=== PATIENT | female | born 1950 | race Caucasian/White ===

== ENCOUNTER 2016-12-04 | Observation (INO) | payer MEDICARE, BC, OTHER ==
[2016-12-03 23:31] VITALS: BP 132/69; PULSE 83; TEMP 98.3
[2016-12-04] VITALS (9 sets, daily range): BP systolic 102–125; BP diastolic 40–59; PULSE 73–90; TEMP 98.3–99.4
[~2016-12-04] VITALS: Ht 162.6 cm; Wt 71.3 kg
[2016-12-04 06:23] LABS: BASO % 0.1 % (0.0-2.0); GRAN # 11.4 (1.4-6.5); GRAN % 80.6 % (42.2-75.2); HEMATOCRIT 37.8 % (37.0-47.0); HEMOGLOBIN 12.7 g/dl (12.5-16.0); LYMPH # 1.4 (1.2-3.4); LYMPH % 9.8 % (20.0-51.0); MEAN CELL VOLUME 89 fl (80.0-100.0); MEAN CORPUSCULAR HEMOGLOBIN 30 pg (27.0-31.0); MEAN CORPUSCULAR HGB CONC 34 g/dl (33.0-37.0); MEAN PLATELET VOLUME 10.5 fl (7.4-10.4); MONO # 1.3 (0.1-0.6); MONO % 9.1 % (1.7-9.3); PLATELET COUNT 152 K/mm3 (130-400); RED BLOOD COUNT 4.25 M/mm3 (4.10-5.30); REDCELL DISTRIBUTION WIDTH-CV 13.7 % (11.5-14.5); WHITE BLOOD COUNT 14.1 K/mm3 (4.8-10.8)
== END 2016-12-04 19:11 | disposition home or self-care (01) ==
LOC: SDCO → SURG → SDCO 11:04 → SURG 11:05
PROVIDERS: Surgery
DX: C18.1 Malignant neoplasm of appendix (principal); K35.3 Acute appendicitis with localized peritonitis; Z96.643 Presence of artificial hip joint, bilateral
CPT/HCPCS: OP; G0378; G0379; J2543; J2704; J2765; J3010; J7030; J7050; J7120

== ENCOUNTER 2017-02-22 12:01 | Outpatient (CLI) | payer MEDICARE, BC, OTHER ==
[~2017-02-22] VITALS: Ht 162.6 cm; Wt 59.1 kg
[2017-02-22 12:28] LABS: HEMOGLOBIN 13.6 g/dl (12.5-16.0); MEAN CELL VOLUME 84 fl (80.0-100.0); MEAN CORPUSCULAR HEMOGLOBIN 30 pg (27.0-31.0); MEAN CORPUSCULAR HGB CONC 36 g/dl (33.0-37.0); MEAN PLATELET VOLUME 8.7 fl (7.4-10.4); PLATELET COUNT 250 K/mm3 (130-400); RED BLOOD COUNT 4.51 M/mm3 (4.10-5.30); REDCELL DISTRIBUTION WIDTH-CV 13.4 % (11.5-14.5); WHITE BLOOD COUNT 10.4 K/mm3 (4.8-10.8)
[2017-02-22 12:36] LABS: CALCIUM 9.7 mg/dL (8.4-10.2); CREATININE, serum 1.02 mg/dL (0.52-1.25); POTASSIUM 4.4 mmol/L (3.4-5.0)
[2017-02-22 13:36] VITALS: BP 110/61; PULSE 94
== END 2017-02-22 15:30 | disposition home or self-care (01) ==
LOC: EUO 12:01
PROVIDERS: Internal Medicine Gastroenterology
DX: K63.89 Other specified diseases of intestine (principal); E86.0 Dehydration; Z90.49 Acquired absence of other specified parts of digestive tract
CPT/HCPCS: J7120

== ENCOUNTER 2017-02-22 14:51 | Inpatient (IN) | payer MEDICARE, BC, OTHER ==
[~2017-02-22] VITALS: Ht 162.6 cm; Wt 59.9 kg
[2017-03-02] VITALS (11 sets, daily range): BP systolic 97–131; BP diastolic 46–72; PULSE 70–98; TEMP 97.2–98.1
[2017-03-02 11:08] LABS: BASO # 0.1 (0.0-0.2); BASO % 0.6 % (0.0-2.0); EOS # 0.2 (0.0-0.7); EOS % 2.5 % (0-4.0); GRAN # 5.9 (1.4-6.5); GRAN % 67.4 % (42.2-75.2); HEMATOCRIT 37.6 % (37.0-47.0); LYMPH # 1.8 (1.2-3.4); LYMPH % 20.6 % (20.0-51.0); MEAN CELL VOLUME 87 fl (80.0-100.0); MEAN CORPUSCULAR HEMOGLOBIN 30 pg (27.0-31.0); MEAN CORPUSCULAR HGB CONC 35 g/dl (33.0-37.0); MEAN PLATELET VOLUME 8.8 fl (7.4-10.4); MONO # 0.7 (0.1-0.6); MONO % 8.3 % (1.7-9.3); PLATELET COUNT 314 K/mm3 (130-400); RED BLOOD COUNT 4.32 M/mm3 (4.10-5.30); REDCELL DISTRIBUTION WIDTH-CV 13.7 % (11.5-14.5); WHITE BLOOD COUNT 8.7 K/mm3 (4.8-10.8)
[2017-03-02 11:18] LABS: CREATININE, serum 0.92 mg/dL (0.52-1.25)
[2017-03-03 01:34] VITALS: BP 99/47; PULSE 88; TEMP 97.9
[2017-03-03 06:01] VITALS: BP 98/48; PULSE 77; TEMP 98.4
[2017-03-03 06:19] LABS: HEMATOCRIT 29.5 % (37.0-47.0); HEMOGLOBIN 10.2 g/dl (12.5-16.0)
[2017-03-03 06:28] LABS: CREATININE, serum 0.74 mg/dL (0.52-1.25); MAGNESIUM 1.2 mg/dL (1.6-2.3); POTASSIUM 4.2 mmol/L (3.4-5.0)
[2017-03-03 09:40] VITALS: BP 95/60; PULSE 90; TEMP 98.4
[2017-03-03 12:56] LABS: HEMATOCRIT 30.2 % (37.0-47.0); HEMOGLOBIN 10.6 g/dl (12.5-16.0)
[2017-03-03 13:36] VITALS: BP 103/45; PULSE 92; TEMP 98.2
[2017-03-03 17:49] VITALS: BP 106/47; PULSE 92; TEMP 97.9
[2017-03-03 22:11] VITALS: BP 114/29; PULSE 97; TEMP 98.2
[2017-03-04 05:37] VITALS: BP 98/48; PULSE 89; TEMP 98.4
[2017-03-04] MEDS ORDERED: MOTRIN 200200 MG/TAB PO (09:34)
[2017-03-04 09:36] VITALS: BP 102/54; PULSE 86; TEMP 97.9
== END 2017-03-04 10:08 | disposition home or self-care (01) | DRG 330 ==
LOC: SURG 03-02 09:42 → INPTSU 03-02 09:42 → SURG 03-02 12:30
PROVIDERS: Surgery
PROC: 02HV33Z Insertion of Infusion Device into Superior Vena Cava, Percutaneous Approach (ICD-10-PCS; 2017-03-02)
PROC: B5181ZA Fluoroscopy of Superior Vena Cava using Low Osmolar Contrast, Guidance (ICD-10-PCS; 2017-03-02)
PROC: 0DBB0ZZ Excision of Ileum, Open Approach (ICD-10-PCS; principal; 2017-03-02 12:30)
PROC: 0JH60XZ Insertion of Tunneled Vascular Access Device into Chest Subcutaneous Tissue and Fascia, Open Approach (ICD-10-PCS; 2017-03-02 12:30)
DX: Z43.2 Encounter for attention to ileostomy (principal); C18.1 Malignant neoplasm of appendix; D50.0 Iron deficiency anemia secondary to blood loss (chronic)
CPT/HCPCS: A9284; C1788; J0694; J1100; J1170; J1644; J1650; J2405; J2704; J3475; J7120

== ENCOUNTER 2018-05-11 07:56 | Day surgery (SDC) | payer MEDICARE, BC, OTHER ==
[2018-05-11] VITALS (9 sets, daily range): BP systolic 114–141; BP diastolic 40–78; PULSE 64–88; TEMP 97.6–98.3
[~2018-05-11] VITALS: Ht 160 cm; Wt 70.5 kg
[~2018-05-11 07:56] MED LIST: MOTRIN 200200 MG/TAB PO; TYLENOL SINUS PO
[2018-05-11] MEDS ORDERED: NORCO 325 MG-51 TAB PO (13:40)
[2018-05-12 00:01] VITALS: BP 108/42; PULSE 81; TEMP 98.8
[2018-05-12 03:26] VITALS: BP 103/40; PULSE 78; TEMP 98.7
[2018-05-12 07:36] VITALS: BP 97/43; PULSE 73; TEMP 98.2
== END 2018-05-12 09:05 | disposition home or self-care (01) ==
LOC: SDCO 07:56 → SURG 19:55 → SDCO 05-12 09:05
DX: K43.2 Incisional hernia without obstruction or gangrene (principal); Z85.89 Personal history of malignant neoplasm of other organs and systems; Z92.21 Personal history of antineoplastic chemotherapy; Z90.49 Acquired absence of other specified parts of digestive tract; K21.9 Gastro-esophageal reflux disease without esophagitis; M16.0 Bilateral primary osteoarthritis of hip; H81.09 Meniere's disease, unspecified ear; M54.2 Cervicalgia
CPT/HCPCS: OP; A4314; C1781; J0690; J1100; J1170; J1644; J1885; J2405; J2704; J2710; J3010; J7120